=== PATIENT | female | born 1945 | race Caucasian/White ===

== ENCOUNTER 2018-03-06 16:55 | Inpatient (IN) | payer MEDICARE, OTHER ==
[~2018-03-06] VITALS: Ht 170.2 cm; Wt 107.0 kg
--- OUTSIDE RECORDS SUMMARY | ~2018-03-06 | XMS | Clinical Summary ---
Demographics + + + | Address | [address] | | | [place] [address] | + + + | Home Phone | | + + + | Preferred Language | Unknown | + + + | Marital Status | | + + + | Yarsanism Affiliation | Unknown | + + + | Race | White | + + + | Ethnic Group | Not or | + + + Author + + + | Author | NON REVENUE LOCATIONS | + + + | Organization | NON REVENUE LOCATIONS | + + + | Address | Unknown | + + + | Phone | Unavailable | + + + Support + + + + + | Name | Relationship | Address | Phone | + + + + + | Derik Conti | ECON | [id number] | | | | | [place] | | | | | [phone] | | + + + + + Care Team Providers + +------+ + | Care Mechanical Research Engineer Name | Role | Phone | + +------+ + | No Pcp Per Patient | PP | Unavailable | + +------+ + Source Comments RUPESH is fully live on both [facility] and [facility] Allergies + + + + + + | Active Allergy | Reactions | Severity | Noted | Comments | | | | | Date | | + + + + + + | Morphine | Sedation | | 04/08/20 | Had significant | | | | | 14 | delay in recovery of | | | | | | wakefulness after | + + + + + + | Oxycodone-Acetaminop | Nausea | | 04/08/20 | | | hen | | | 14 | | + + + + + + Current Medications + + +-------+---------+------+------+-------+ | Prescription | Sig. | Disp. | Refills | Star | End | Statu | | | | | | t | Date | s | | | | | | Date | | | + + +-------+---------+------+------+-------+ | gabapentin 300 mg | Take 900 mg by mouth | | | | | Activ | | oral capsule | once daily at | | | | | e | | | bedtime. | | | | | | + + +-------+---------+------+------+-------+ | felodipine 5 mg | Take 5 mg by mouth | | | | | Activ | | oral tablet extended | once daily. | | | | | e | | release 24 hr | | | | | | | + + +-------+---------+------+------+-------+ | metoprolol | Take 100 mg by mouth | | | | | Activ | | succinate 100 mg | once daily. | | | | | e | | oral tablet extended | | | | | | | | release 24 hr | | | | | | | + + +-------+---------+------+------+-------+ | clonazePAM 1 mg | Take 1 mg by mouth | | | | | Activ | | oral tablet | once daily. | | | | | e | + + +-------+---------+------+------+-------+ | furosemide 40 mg | Take 40 mg by mouth | | | | | Activ | | oral tablet | every twelve hours. | | | | | e | + + +-------+---------+------+------+-------+ | warfarin 5 mg oral | Take 5 mg by mouth | | | | | Activ | | tablet | once daily. | | | | | e | + + +-------+---------+------+------+-------+ | potassium chloride | Take 20 mEq by mouth | | | | | Activ | | 20 mEq oral packet | two times daily. | | | | | e | + + +-------+---------+------+------+-------+ | OMEPRAZOLE | Take 20.6 mg by | | | | | Activ | | (PRILOSEC ORAL) | mouth once daily. | | | | | e | + + +-------+---------+------+------+-------+ | aspirin 81.25 mg | Take 81 mg by mouth | | | | | Activ | | oral tablet | once daily. | | | | | e | + + +-------+---------+------+------+-------+ Active Problems No known active problems Family History + + +------+ + | Medical History | Relation | Name | Comments | + + +------+ + | Alcohol/Drug | Father | | | + + +------+ + | Arthritis | Mother | | | + + +------+ + + +------+--------+ + | Relation | Name | Status | Comments | + +------+--------+ + | Father | | | | + +------+--------+ + | Mother | | | | + +------+--------+ + Social History + +-------+ +--------+ + | Tobacco Use | Types | Packs/Day | Years | Date | | | | | Used | | + +-------+ +--------+ + | Former Smoker | | | 40 | Quit: 11/22/2012 | + +-------+ +--------+ + + + + | Sex Assigned at | Date Recorded | | | | + + + | Not on file | | + + + Last Filed Vital Signs + + + + | Vital Sign | Reading | Time Taken | + + + + | Blood Pressure | 155/115 | 04/08/2014 2:37 PM PDT | + + + + | Pulse | 56 | 04/08/2014 2:37 PM PDT | + + + + | Temperature | - | - | + + + + | Respiratory Rate | - | - | + + + + | Oxygen Saturation | 95% | 04/08/2014 2:37 PM PDT | + + + + | Inhaled Oxygen | - | - | | Concentration | | | + + + + | Weight | 95.3 kg (210 lb) | 04/08/2014 2:37 PM PDT | + + + + | Height | 170.2 cm (5' 7") | 04/08/2014 2:37 PM PDT | + + + + | Body Mass Index | 32.89 | 04/08/2014 2:37 PM PDT | + + + + Plan of Treatment + + + + + | Health Maintenance | Due Date | Last Done | Comments | + + + + + | INFLUENZA VACCINE | | | | | (FLU SHOT) | 8 | | | + + + + + Results Not on filefrom Last 3 Months Insurance + +--------+ +--------+ + + | Payer | Benefi | Subscriber | Type | Phone | Address | | | t Plan | ID | | | | | | / | | | | | | | Group | | | | | + +--------+ +--------+ + + | MEDICARE | MEDICA | xxxxxxxxxx | Medica | [phone] [phone] | | | RE A & | | re | [phone] | [place] [address] | | | B | | | | | + +--------+ +--------+ + + | COMMERCIAL | INDIVI | [phone] | Indemn | | | | INDIVIDUAL | DUAL | | ity | | | | | COMMER | | | | | | | CIAL | | | | | + +--------+ +--------+ + + + +--------+ +--------+ + + | Guarantor Name | Accoun | Relation to | Date | Phone | Billing Address | | | t Type | Patient | of | | | | | | | | | | + +--------+ +--------+ + + | Ramona CRUZ | Person | Self [birth year] Home: | [address] | | [place] | al/Fam | | 1946 | [phone] | [place], | | | [place] | | | [phone] | [place] [phone] | + +--------+ +--------+ + +
[2018-03-06] MEDS ORDERED: TOPROL XL50 MG PO ×2 (17:38→22:45)
[2018-03-06] MEDS ORDERED: ASPIRIN81 MG PO (17:38)
[2018-03-06] MEDS ORDERED: PRILOSEC OTC20 MG PO (17:39)
[2018-03-06] MEDS ORDERED: BETAMETHASONE D15 G1 (22:42)
[2018-03-06] MEDS ORDERED: WELLBUTRIN SR100 MG PO (22:42)
[2018-03-06] MEDS ORDERED: CLONIDINE HCL0.1 M1 PO (22:43)
[2018-03-06] MEDS ORDERED: PLAVIX75 MG PO (22:43)
[2018-03-06] MEDS ORDERED: CALCITRIOL0.25 MCG PO (22:43)
[2018-03-06] MEDS ORDERED: FUROSEMIDE40 MG PO (22:44)
[2018-03-06] MEDS ORDERED: CYCLOBENZAPRINE10 MG PO (22:44)
[2018-03-06] MEDS ORDERED: GABAPENTIN300 MG PO (22:44)
[2018-03-06] MEDS ORDERED: CRESTOR40 MG NG (22:45)
[2018-03-06] MEDS ORDERED: MECLIZINE HCL25 MG PO (22:45)
--- NOTE | 2018-03-06 23:22 | NUR ---
PT ARRIVED VIA STRETCHER WITH , ON CLIENT STRATEGIST. PT AAOX4, BREATHING EVEN,UNLABORED. 96% ON RA. NO DISTRESS NOTED. PT C/O BILAT LEG "JERKING" FROM RLS. PT DENIES PAIN AT THIS TIME. PT CONNECED TO CON'T CLIENT STRATEGIST. BSC AT BEDSIDE. CALL LIGHT AND ITEMS IN REACH. UPDATED COMMUNICATION BOARD.
--- NOTE | 2018-03-07 00:41 | NUR ---
ASSISTED PT TO BSC. 300ML URINE OUTPUT.
--- NOTE | 2018-03-07 01:24 | NUR ---
PT O2 DESAT TO 88%, BACK UP TO 95% . PT PLACED ON 2LNC.
--- NOTE | 2018-03-07 04:17 | NUR ---
ASSISTED PT TO BSC, VOIDED 500ML. ASSISTED PT BACK TO BED. NO C/O PAIN OR DISTRESS NOTED. CALL LIGHT AND ITEMS IN REACH.
--- NOTE | 2018-03-07 06:13 | NUR ---
ASSISTED PT TO BSC, VOIDED 500ML, ASSISTED PT BACK TO BED. ALL ITEMS IN REACH. PT KEPT COMFORTABLE.
--- NOTE | 2018-03-07 08:00 | NUR ---
PT REPORTS LOSS OF VISION WITH RIGHT EYE FROM PREVIOUS STROKE. TRENT OF GAZE INTACT, NO DEFECITS NOTED ON LEFT. PT SHOULDER SHRUG ON LEFT IS WEAK, STRONG ON RIGHT. PT UNABLE TO MOVE RIGHT ARM AT ALL. SENSATION IN HAND IS NUMBNESS, ABLE TO FEEL TOUCH. PT UNABLE TO FEEL TOUCH IN LEFT LEG FROM KNEE AND BELOW. SENSATION INTACT ABOVE KNEE ON LEFT LEG. RIGHT LEG AND RIGHT ARM SENSATION INTACT. PT LEFT LEG UNABLE TO LIFT AGAINST GRAVITY. LEFT FACIAL DROOP, SENSATION ON FACT INTACT. EYEBROW RAISE ON LEFT LESS THAN RIGHT EYEBROW RAISE. NO APHASIA NOTED WITH CONVERSATION. PT ABLE TO TAKE LIQUIDS AND FOOD WITH NO NOTICABLE DISPHAGIA.
--- NOTE | 2018-03-07 08:09 | EKG ---
[facility] [address] [place] [address] Signed Normal sinus rhythm Voltage criteria for left ventricular hypertrophy Abnormal ECG Confirmed by MARIAMA BANDA MD ([id number]) on 03/07/2018 8:08:30 AM Electronically Signed By: MARIAMA BANDA MD 03/07/18808 PATIENT NAME: LIEN DINHALIDA Lv Electrocardiogram DATE OF : 45 PHYSICIAN: MARIAMA BANDA MD REPORT #: [id number] REPORT IS CONFIDENTIAL AND NOT TO BE RELEASED WITHOUT AUTHORIZATION
[2018-03-07] MEDS ORDERED: ENOXAPARIN30 MG/0.3 SUB-Q (10:00)
--- NOTE | 2018-03-07 14:06 | NUR ---
CONNECTED WITH CR OF PT. WAITING FOR WORD ABOUT MED TRANSPORT TO [facility] FOR PT-NEAR WHERE THEY LIVE. STAYING IN [facility] WITH 2 DOGS INFORMED HIM WHERE TO DUMP TANKS. REQUESTED PRAYER. WILL FOLLOW NEEDED
--- NOTE | 2018-03-07 14:11 | NUR ---
PT WAITING FOR BEDSPACE IN [facility]. THEIR DITCH WORKER INFORMED STAFF THAT THEY WOULD CALL WHEN A BED BECAME AVAILABLE.
--- NOTE | 2018-03-07 14:43 | NUR ---
PT REPORTS INCREASED SENSATION ON LEFT LEG. PT ABLE TO FEEL TOUCH ON LEFT FOOT AND CALF WHICH PREVIOUSLY WAS UNFELT. ABLE TO MOVE LEFT LEG AT KNEE AND HIP MORE THAN PREVIOUS. PT REPORTING PAIN IN LEFT ANKLE FROM PREVIOUS FALL PER PT.
--- NOTE | 2018-03-07 15:48 | NUR ---
FAXED CHART NOTES TO [facility] TO INCLUDE FACESHEET, ER NOTES, H AND P, DC SUMMARY, LABS, IMAGING, MONITOR STRIPS. RECEIVED A FAX CONFIRMATION. PHONE NUMBER [phone] WITH A FAX # [phone].
--- NOTE | 2018-03-07 16:50 | NUR ---
PT WITH NO FURTHER NEUROLOGICAL CHANGES SINCE PREVIOUS NOTE. LEFT UNIT AT THIS TIME. VITALS STABLE. PAIN REDUCED PER PATIENT TO ADEQUATE LEVEL FROM FENTANYL.
== END 2018-03-07 16:50 | disposition short-term general hospital (02) | DRG 66 ==
LOC: ED 16:55 → CCU 21:29
PROVIDERS: ADMIT Internal Medicine
DX: I63.9 Cerebral infarction, unspecified (principal); I10 Essential (primary) hypertension; E78.5 Hyperlipidemia, unspecified; I73.9 Peripheral vascular disease, unspecified; I12.9 Hypertensive chronic kidney disease with stage 1 through stage 4 chronic kidney disease, or unspecified chronic kidney disease; N18.9 Chronic kidney disease, unspecified; R53.1 Weakness; R29.810 Facial weakness; K59.00 Constipation, unspecified
CPT/HCPCS: 36415; 70450; 70496; 70498; 71045; 80048; 80053; 81001; 84484; 85025; 85610; 85730; 93005; 93010; 97163; 97166; J1650; J3010; J7030; Q9967